=== PATIENT | male | born 2000 | race Caucasian/White ===

== ENCOUNTER 2022-09-20 13:22 | Emergency (ER) | payer OTHER, BC, SELFPAY ==
[2022-09-20 13:35] VITALS: BP 155/81; PULSE 98; RESP 16; TEMP 37.1; O2SAT 97
--- NOTE | 2022-09-20 13:49 | ED.WOUNDLAC ---
HPI - Wound/Laceration General Chief Complaint: Wound/Laceration Stated Complaint: Cut Fingers Rt Hand Time Seen by Provider: 09/20/22 13:44 Source: patient and RN notes reviewed Mode of arrival: ambulatory Limitations: no limitations History of Present Illness HPI narrative: Patient presents today complaining of lacerations to his right 2nd, 3rd, and 4th fingers that was sustained at work around 10 30 this morning. He was holding on to something metal when he sliced it on a sharp edge. He is currently pain-free. He wash the area and applied triple antibiotic ointment and a Band-Aid. He was told to come in for evaluation. Denies numbness or tingling. Related Data Home Medications Medication Instructions Recorded Confirmed montelukast 10 mg tablet 10 mg PO HS 09/20/22 09/20/22 (Singulair) Allergies Allergy/AdvReac Type Severity Reaction Status Date / Time No Known Allergies Allergy Verified 09/20/22 13:28 Review of Systems Review of Systems: CONSTITUTIONAL: Denies body aches, fever, chills, or sweats. EYES: Denies visual changes, redness, or discharge. ENT: Denies rhinorrhea, congestion, sore throat, or otalgia. CARDIOVASCULAR: Denies chest pain, palpitations, or edema. RESPIRATORY: Denies cough or dyspnea. GASTROINTESTINAL: Denies abdominal pain, nausea, vomiting, or diarrhea. GENITOURINARY: Denies dysuria or hematuria. SKIN: + finger lacerations MUSCULOSKELETAL: Denies back pain, joint pain, or myalgia. NEUROLOGIC: Denies headache, numbness, tingling, or weakness. PSYCH: Denies depression or anxiety. PMFSH Comments At time of signature, I have reviewed and agree with nursing past medical, surgical, social and family history unless otherwise noted. Please see nursing chart for further information. There is no relevant family history pertinent to the presenting complaint Exam Narrative: GENERAL: Well-appearing, well-nourished, and in no acute distress. HEAD: Normocephalic, atraumatic. EYES: EOMI. No redness or drainage. Conjunctivae normal. ENT: Mucous membranes pink and moist. NECK: Normal AROM. CHEST: No respiratory distress. EXTREMITIES: Normal range of motion. No edema. SKIN: Warm, dry, no rash. Capillary refill normal. Normal skin turgor. Right 2nd finger: 1.5cm full thickness linear laceration to the palmar aspect of the middle phalanx. Right 3rd finger 2 cm full-thickness linear laceration to the palmar aspect of the middle phalanx. Right 4th finger 1.5 cm partial-thickness linear laceration to the palmar aspect of the middle phalanx. Distal sensation intact in all 3 fingers. Capillary refill normal. Full range of motion against resistance in all 3 fingers. No active bleeding. NEURO: No focal deficits. Alert and oriented x3. Gait steady. PSYCH: Normal affect. No signs of depression or anxiety. Course Course Level of Care: Express Care Visit Vital Signs Vital signs: Vital Signs Temperature 98.7 F 09/20/22 13:35 Pulse Rate 98 09/20/22 13:35 Respiratory Rate 16 09/20/22 13:35 Blood Pressure 155/81 H 09/20/22 13:35 Pulse Oximetry 97 09/20/22 13:35 Oxygen Delivery Room Air 09/20/22 13:35 Temperature 98.7 F 09/20/22 13:35 Pulse Rate 98 09/20/22 13:35 Respiratory Rate 16 09/20/22 13:35 Blood Pressure 155/81 H 09/20/22 13:35 Pulse Oximetry 97 09/20/22 13:35 Oxygen Delivery Room Air 09/20/22 13:35 Reviewed. Pt has been instructed to follow up with his PCP regarding his elevated blood pressure today. Procedures Laceration Laceration 1: Date: 09/20/22 Time: 14:18 Site: hand Side (If applicable): right Size (cm): 2 Description: linear Depth: simple, single layer Local Anesthetic: lidocaine 1% Amount of anesthesia used (mL): 3 Pre-repair: wound explored and irrigated ====== Skin Level ====== Skin layer closed with: nylon Size (cm): 5-0 Krishna
[2022-09-20] MEDS: TETANUS,DIPHTHERIA,AC PERTUSSIS ADULT (0.5 ML) BOOSTRIX IM (13:51)
== END 2022-09-20 14:23 | disposition home or self-care (01) ==
PROVIDERS: Emergency Provider Nurse Practitioner; PCP Family Medicine
DX: S61.210A Laceration without foreign body of right index finger without damage to nail, initial encounter (principal); S61.212A Laceration without foreign body of right middle finger without damage to nail, initial encounter; S61.214A Laceration without foreign body of right ring finger without damage to nail, initial encounter; W26.9XXA Contact with unspecified sharp object(s), initial encounter; Z23 Encounter for immunization
CPT/HCPCS: 12002; 90471; 90715; 99212; G0463

== ENCOUNTER 2022-09-27 15:06 | Emergency (ER) | payer OTHER, BC, SELFPAY ==
[2022-09-27 15:21] VITALS: BP 152/86; PULSE 55; RESP 18; TEMP 36.7; O2SAT 100
--- NOTE | 2022-09-27 15:40 | ED.GENADULT ---
HPI - General Adult General Chief complaint: Unspecified Stated complaint: Suture Removal Related Data Home Medications Medication Instructions Recorded Confirmed montelukast 10 mg tablet 10 mg PO HS 09/20/22 09/27/22 (Singulair) Allergies Allergy/AdvReac Type Severity Reaction Status Date / Time No Known Allergies Allergy Verified 09/27/22 15:22 Course Vital Signs Vital signs: Vital Signs Temperature 98.1 F 09/27/22 15:21 Pulse Rate 55 L 09/27/22 15:21 Respiratory Rate 18 09/27/22 15:21 Blood Pressure 152/86 H 09/27/22 15:21 Pulse Oximetry 100 09/27/22 15:21 Oxygen Delivery Room Air 09/27/22 15:21 Temperature 98.1 F 09/27/22 15:21 Pulse Rate 55 L 09/27/22 15:21 Respiratory Rate 18 09/27/22 15:21 Blood Pressure 152/86 H 09/27/22 15:21 Pulse Oximetry 100 09/27/22 15:21 Oxygen Delivery Room Air 09/27/22 15:21 Medical Decision Making Vital Signs Vital Signs: Vital Signs Temperature 98.1 F 09/27/22 15:21 Pulse Rate 55 L 09/27/22 15:21 Respiratory Rate 18 09/27/22 15:21 Blood Pressure 152/86 H 09/27/22 15:21 Pulse Oximetry 100 09/27/22 15:21 Oxygen Delivery Room Air 09/27/22 15:21 Temperature 98.1 F 09/27/22 15:21 Pulse Rate 55 L 09/27/22 15:21 Respiratory Rate 18 09/27/22 15:21 Blood Pressure 152/86 H 09/27/22 15:21 Pulse Oximetry 100 09/27/22 15:21 Oxygen Delivery Room Air 09/27/22 15:21 Discharge Plan Discharge Prescriptions: No Action montelukast [Singulair] 10 mg Tablet 10 mg PO HS Follow-up/Referrals: Gustavo Mishra M.D. [Primary Care Provider] -
== END 2022-09-27 15:45 | disposition left against medical advice (07) ==
LOC: EXPTROY 15:09
PROVIDERS: Emergency Provider Nurse Practitioner; PCP Family Medicine
DX: Z53.21 Procedure and treatment not carried out due to patient leaving prior to being seen by health care provider (principal)
CPT/HCPCS: 99199

== ENCOUNTER 2022-10-01 12:49 | Emergency (ER) | payer OTHER, BC, SELFPAY ==
--- NOTE | 2022-10-01 12:51 | ED_ITS ---
HPI - Wound/Laceration General Chief Complaint: Wound/Laceration Stated Complaint: Suture Removal Right Hand Time Seen by Provider: 10/01/22 12:50 Source: patient Mode of arrival: ambulatory Limitations: no limitations History of Present Illness HPI narrative: Srinivas is a 22-year-old male patient presenting to the clinic today for a suture removal to his fingers. He denies any concerns. He reports initially he cut his fingers on a piece of metal from a cooler. Had lacerations to the 2nd 3rd and 4th fingers Related Data Home Medications Medication Instructions Recorded Confirmed montelukast 10 mg tablet 10 mg PO HS 09/20/22 10/01/22 (Singulair) Allergies Allergy/AdvReac Type Severity Reaction Status Date / Time No Known Allergies Allergy Verified 09/27/22 15:22 Review of Systems Review of Systems: Pertinent positives per HPI. Patient denies any fever, chills, rash, headache, visual changes, dizziness, cough, runny nose, sore throat, shortness of breath, chest pain, palpitations, nausea, vomiting, diarrhea, constipation, abdominal pain, or any urinary issues. PMFSH Comments At the time of my signature, I reviewed and agree with the nursing past medical, surgical, social, and family history. There is no relevant family history pertinent to the patient complaint. Exam Narrative: General: Well-developed, well nourished, in no apparent distress Head: Normocephalic, atraumatic. Cardio: Regular rate and rhythm, s1 and s2 normal, no murmur appreciated. Resp: Clear to auscultation bilaterally, no rhonchi, rales, wheezing or rubs. Integumentary: [place], warm, and dry, intact without lesion, no rashes. A total of 4 sutures per finger-volar aspect of the 2nd, 3rd, and 4th finger were used to close the wound initially. Wound appears to be well healed without signs of infection so all 12 sutures were removed using pickups and iris scissors. No complications Course Course Emergency Course: Portions of this record may have been created with voice recognition software. Level of Care: Express Care Visit Vital Signs Vital signs: Vital signs reviewed MDM - Wound/Laceration MDM Narrative Medical decision making narrative: At the time of visit patient is resting comfortably on the exam table. Suture removal was performed in the clinic without complication. Patient tolerated procedure well. supportive measures were discussed with the patient he voiced understanding discharge instructions and agrees to treatment plan. Differential Diagnosis Differential diagnosis: Likely other (Wound assessment, encounter for suture removal) Discharge Plan Discharge Clinical Impression: Encounter for removal of sutures Patient Disposition: Home, Self-Care Condition: Stable Instructions: Antibiotic Form, Stitches Removal (ED) Additional Instructions: Suture removal completed in the clinic today Follow-up with your PCP as needed Prescriptions: No Action montelukast [Singulair] 10 mg Tablet 10 mg PO HS Follow-up/Referrals: Gustavo Mishra M.D. [Primary Care Provider] - Quality NIHSS Nursing Documentation ED NIHSS nursing documentation: reviewed/agree
[2022-10-01 12:59] VITALS: BP 148/81; PULSE 79; RESP 18; TEMP 36.7; O2SAT 98
== END 2022-10-01 13:05 | disposition home or self-care (01) ==
PROVIDERS: Emergency Provider Nurse Practitioner Family; PCP Family Medicine
DX: S61.210D Laceration without foreign body of right index finger without damage to nail, subsequent encounter (principal); S61.212D Laceration without foreign body of right middle finger without damage to nail, subsequent encounter; S61.214D Laceration without foreign body of right ring finger without damage to nail, subsequent encounter; W45.8XXD Other foreign body or object entering through skin, subsequent encounter
CPT/HCPCS: 99211; G0463